=== PATIENT | female | born 1995 | race Caucasian/White ===

== ENCOUNTER 2023-09-16 08:18 | Day surgery (SDC) | payer OTHER, SELFPAY ==
[2023-09-16] VITALS (11 sets, daily range): BP systolic 105–118; BP diastolic 68–82; PULSE 64–99; RESP 15–20; TEMP 36.3–37.6; O2SAT 97–100; BMI 26.2
--- NOTE | 2023-09-16 09:31 | WPDANESEPPF ---
Anes - Initial Pre Proc Eval Procedure: Operation Date: 09/16/23 10:30 Proposed Procedures p Bilateral Breast Augmentation Mammoplasty - Juan Tello MD Date/Time: 09/16/23 09:31 Surgeon: Juan Tello MD Pre Op Diagnosis: Micromastia Patient Data Age: 28 Gender: F Height: 1.6 m Weight: 63.503 kg Allergies Allergy/AdvReac Type Severity Reaction Status Date / Time No Known Allergies Allergy Verified 09/16/23 09:28 Home Medications Medication Instructions Recorded Confirmed Type bupropion HCl 150 mg 24 hr tablet, 150 mg PO DAILY 08/31/23 09/16/23 History extended release etonogestrel 68 mg subdermal 1 implant subdermal DIRECTED 08/31/23 09/16/23 History implant (Nexplanon) lamotrigine 200 mg tablet 200 mg PO HS 08/31/23 09/16/23 History Patient hx anesthesia problems: none Family hx anesthesia problems: none Results Review: All pre-operative results and documents have been reviewed as part of the pre-operative evaluation. [facility] Past Medical History Medical History (Updated 09/16/23 @ 09:32 by Perry Desouza DO) Bipolar disorder History of supraventricular tachycardia resolved Social History Social History Smoking status: Current every day smoker Tobacco type: e-cigarettes/vaping Second hand tobacco smoke exposure: No Alcohol intake: current Alcohol use details: 12 drinks monthly Substance use: current Substance use type: marijuana Other substance usage details: occasional Living arrangements: with family Spiritual care concerns: No Anes - Eval Final PreProcedure Day of Procedure 09/16/23 09:31 Patient weight: normal Heart: regular rate and rhythm Lungs: clear to auscultation and normal air movement Airway: Mallampati scale class II Neurological: alert and oriented Last oral intake: >/= 8 hours ASA classification: III Emergent: no Anesthetic plan: proceed Anesthesia type and monitoring: general LMA and standard monitoring Results Review: All pre-operative results and documents have been reviewed as part of the pre-operative evaluation. Informed Consent: The patient's anesthetic plan and its attendant risks and benefits were discussed with the patient/family/POA. Questions were solicited and answers provided to the satisfaction of the patient/family/POA.
[2023-09-16] MEDS: LACTATED RINGERS 1,000 ML 30 ML IV CONT ×2 (10:08→12:28)
[2023-09-16] MEDS: SCOPOLAMINE 1 MG PATCH 1 PATCH TRANSDERM (10:08)
--- NOTE | 2023-09-16 10:09 | SUR.PREOP ---
500CC IVF BOLUS STARTED PER DR LOPEZ ORDERS
--- NOTE | 2023-09-16 10:55 | WPDHPUPDATE1 ---
History and Physical Update Update Date/Time: 09/16/23 10:55 History and Physical has been reviewed, including an updated exam of the patient. There are NO changes in the patient's condition. Risks, benefits, and alternatives have been discussed and questions answered. Patient agrees to proceed with procedure.
--- NOTE | 2023-09-16 10:55 | W.PM.PROC2 ---
Procedure Note - Detailed Date of Procedure 09/16/23 Pre-op Diagnosis Micromastia Post-op Diagnosis Same Procedure Performed Bilateral augmentation mammaplasty Surgeon Juan Tello MD Anesthesia General Findings Bilateral Shalini Mahoney Cohesive 650cc Right - REF# [id number] SN [id number] Left - REF# [id number] SN [id number] Description of Procedure She is here today for bilateral breast augmentation. Previously and again today the risks, benefits, alternatives were discussed in extensive detail. I wanted her to be very realistic about the risks involved as well as expectations. We discussed aftercare and what to monitor for. Made sure answered all of her questions to her satisfaction today and consent was obtained. Marked in the preoperative holding area with their verification. The patient was taken to the operating room placed supine on the operating table. Anesthesia was provided by anesthesiology. A surgical time-out was taken. We cleansed the skin and 1% lidocaine and 0.25% Marcaine with epinephrine was used anesthetize as a field block. She was prepped and draped in a standard sterile fashion. Tegaderm nipple Hel[place] were placed. A 15 blade used to make an incision along the inframammary fold. Dissection was continued at 45 degree angle until the chest wall as identified. I incised the pectoralis major along its inferior border and completely released the inferior border leaving the medial border intact. I created a subpectoral pocket in the appropriate dimensions based on our preoperative planning for the implant. I then copiously irrigated with saline solution and verified a strict hemostasis. Next the use a triple antibiotic and Betadine containing solution to irrigate the pocket. I washed my gloves with the triple antibiotic and Betadine solution. We washed the implant immediately upon opening it with this solution and only opened it when we needed it. I used implant funnel and no-touch technique. The implant was introduced into the pocket using the funnel. Having verified positioning of the implant this was closed using 2-0 PDS followed by 3-0 Monocryl in a running subcuticular 4-0 Monocryl followed by tissue glue. Fluffs and surgical bra were placed. Patient was awoke and taken to PACU without difficulty. All instrument sponge counts were correct at the end of the case. Estimated Blood Loss 25 Drains No Packing No Pathology None sent Complications No immediate complications Condition Stable Disposition PACU
--- NOTE | 2023-09-16 11:01 | SUR.PREOP ---
FEMALE STAFF MEMBER IN ROOM WHILE DR LOPEZ MARKED PT. PT'S SIG OTHER AT BEDSIDE ALSO
[2023-09-16] MEDS: TRANEXAMIC ACID 1,000 MG/10 ML AMPUL 1000 MG IV PUSH (11:18)
[2023-09-16] MEDS: BUPivacaine HCL 0.5% PF 30 ML VIAL INFILTRATE (11:25)
[2023-09-16] MEDS: LIDO 1%/EPINEPHRINE 1:100,000 50 ML VIAL 30 ML INFILTRATE (11:25)
[2023-09-16] MEDS: ceFAZolin SODIUM 2 GM/20 ML SW SYRINGE IV PUSH (11:30)
[2023-09-16] MEDS: fentaNYL CITRATE INJ (*CRX) 100 MCG/2 ML VIAL 25 MCG IV PUSH ×4 (12:37→13:14)
--- NOTE | 2023-09-16 13:29 | WPDANESPN ---
Anes - Prog Note Post-Op Date/Time: 09/16/23 13:29 Cardiovascular status: normal Respiratory status: normal Airway patency: baseline Mental status: baseline Post-Op hydration status: normal Vital Signs: Last Vital Signs Temp 36.3 C L 09/16/23 12:28 Pulse 87 09/16/23 13:23 Resp 18 09/16/23 13:23 BP 108/80 09/16/23 13:23 Pulse Ox 97 09/16/23 13:23 O2 Del Method Room Air 09/16/23 13:23 O2 Flow Rate 10 09/16/23 12:38 Pain Score (VAS): 2 I/O: Intake & Output 09/15/23 09/16/23 09/16/23 23:59 07:59 15:59 Intake Total 1500 Balance 1500 Post-procedural complaints: none Patient Feedback: Patient satisfied with anesthetic care. Other Findings: Patient vital signs back to baseline. Patient denies nausea and vomiting. Patient's pain under control. Patient OK for discharge.
[2023-09-16] MEDS: oxyCODONE HCL (*CRX) 5 MG TAB IR PO (14:18)
== END 2023-09-16 14:28 | disposition home or self-care (01) ==
PROVIDERS: Visit Provider Surgery Plastic and Reconstructive Surgery
PROC: (CPT 19325; principal; 2023-09-16 10:30)
DX: N64.82 Hypoplasia of breast (principal)
CPT/HCPCS: 19325